=== PATIENT | female | born 1995 | race Hispanic/Latino ===

== ENCOUNTER 2019-10-13 19:24 | Day surgery (SDC) | payer OTHER ==
[2019-10-13 20:11] VITALS: BP 107/66; TEMP 98.7; BMI 50.5
[2019-10-13] MEDS ORDERED: hydrALAZINE 20 MG/ML VIAL SLOW IVP PRN (20:34)
--- NOTE | 2019-10-13 22:27 | ULT ---
EXAM: US OB [facility] PROVIDED CLINICAL HISTORY: Positive . Evaluate amniotic fluid index. Reduced movement, leaking fluid. COMPARISON: None FINDINGS: A single intrauterine gestation in cephalic presentation is identified. Cardiac Doppler demonstrates heart tones with a heart rate of 135 bpm. The placenta is located anteriorly without findings to suggest placenta previa. Amniotic fluid index measures 12.4 cm. The cervix is not well ev aluated due to shadowing from the head. anatomical structures were not evaluated. measurements were also not obtained. IMPRESSION: 1. Single intrauterine gestation is cephalic presentation with heart tones documented. 2. Amniotic fluid index measures 12.4 cm.
--- NOTE | 2019-10-13 23:38 | PRG ---
DATE OF SERVICE: 10/13/2019 PRIMARY OB: Dr. Nishant Reyna. CHIEF COMPLAINT: Decreased movement and vaginal spotting. HISTORY OF PRESENT ILLNESS: The patient is a 24-year-old G2, P0 female, with an intrauterine at 28 weeks and 6 days, presenting to Labor and Delivery for complaints of decreased movement for 2 days. She also reports that she has had little bit of cramping. The patient reports that she feels every now and again cramping in her upper portions of her uterus that remind her of menstrual cramps; however, the cramping that she is experiencing is present, but not painful. The patient reports that she typically feels her baby move with some raising and lowering in the pelvis and some taps, but has not felt that and has come here for further evaluation. The patient denies any recent illness, fever, fall, headache, chest pain, shortness of breath, nausea, vomiting, diarrhea, constipation, hip problems, knee problems, muscle weakness, any change in her discharge, urinary urgency, or frequency. The patient does report that she takes 25 mcg of levothyroxine, but has not taken it for the last couple of weeks due to cost. PAST MEDICAL HISTORY: Hypothyroidism diagnosed in this . PAST SURGICAL HISTORY: Cholecystectomy at age 15. ALLERGIES: CONTRAST MEDIA WITH IODINE. MEDICATIONS: 1. vitamins. 2. Levothyroxine. SOCIAL HISTORY: Denies drug, alcohol, or tobacco use. REVIEW OF SYSTEMS: Per HPI. PHYSICAL EXAMINATION: VITAL SIGNS: Blood pressure 107/66, heart rate of 108, respiratory rate of 18, temperature 98.7. GENERAL: She appears to be in no acute distress. She is alert, oriented, cooperative, and pleasant to interact with. HEAD: Normocephalic and atraumatic. LUNGS: Clear to auscultation bilaterally. HEART: Regular rate and rhythm. ABDOMEN: Gravid, soft, nontender. She has no fundal tenderness. No lower pelvic tenderness. : Deferred. heart tracing shows the fetus with a baseline in the 140s with moderate long-term variability, positive 15 x 15 accelerations. Tocometer is quiet. Bedside ultrasound shows NELIA of 12, and fetus in vertex presentation. ASSESSMENT AND PLAN: The patient is a 24-year-old female with intrauterine at 28 weeks and 6 days, who presented for decreased movement. Since arriving to the hospital, the patient has felt some movement while at bedside and during the ultrasound. The fetus has a reassuring tracing and has a normal NELIA. The patient has been given labor precautions and has an appointment to follow up with her primary OB next week. The patient is being discharged to home without any concerns for labor and has been given reassurance with status at this time. Job ID: [id number]
== END 2019-10-13 21:40 | disposition home or self-care (01) ==
LOC: L&D/OP 19:24
PROVIDERS: ATTEND Obstetrics & Gynecology
DX: O36.8130 Decreased fetal movements, third trimester, not applicable or unspecified (principal); O26.853 Spotting complicating pregnancy, third trimester; O99.283 Endocrine, nutritional and metabolic diseases complicating pregnancy, third trimester; E03.9 Hypothyroidism, unspecified; Z3A.28 28 weeks gestation of pregnancy; Z91.041 Radiographic dye allergy status
CPT/HCPCS: 76815; 99282

== ENCOUNTER 2019-12-22 14:27 | Inpatient (IN) | payer OTHER ==
[~2019-12-22 14:27] MED LIST: Bupivacaine 0.25% HCL 30 ML VIAL ONE; Bupivacaine PF 0.5% 30 ML VIAL ONE; Lidocaine 2% MPF 10 ML AMP (For Epidural Use) ONE; PROPOFOL 200 MG/20 ML VIAL ONE; Succinylcholine Chloride 20 MG/ML 10 ml SYRINGE FS ONE
[2019-12-22 15:17] VITALS: BMI 53.1
[2019-12-22] MEDS ORDERED: hydrALAZINE 20 MG/ML VIAL SLOW IVP PRN ×3 (15:24→15:37)
--- NOTE | 2019-12-22 15:32 | PDOC.LDHP ---
Labor and Delivery H&P Chief complaint: other (Sent by Dr Reyna from office for BP check, BP there was 140-150o/90-100s.) HPI: 24 yo HG2Po at 38 weeks 6 days with some cough upon lying down, with good FM, no VB. no LOF. No current HALL or visual changes. Review of Systems: cough only when lies down, no fevers, no sick contacts. COVID screen neg Current gestational age (weeks): 38 (6 days) Due date: 12/30/19 Dating criteria: last menstrual period Grav: 2 Para: 0 OB History Details: SAB 1 with D&C Current complications: none, other (hypothyroid on 25mcg synthrouid but out of meds for about 10 days) Past Medical History: Hypothyroid; Obesity Current medications: pre- vitamins Allergies/Adverse Reactions: Allergies Allergy/AdvReac Type Severity Reaction Status Date / Time Iodinated Contrast Media Allergy Severe Anaphylaxis Verified 12/22/19 15:06 Social history: none - Physical Exam Abnormal vital signs: BP 140/90s General: NAD Heart: RRR Lungs: CTAB Abdomen: gravid Extremeties: no edema FHT: category 1 [employer] contractions every: none - Assessment L&D Assessment: term patient in labor (PIH, NOS. ) - Plan Plan: admit to L&D, informed consent obtained (GBS negative. I am at bedise now and have discussed POC with the patient. CX pending after lab draw which is inuse. I discussed mag with the patinet.), magnesium for seizure prophylaxis, anesthesia consult for pain management
[2019-12-22] MEDS ORDERED: Bisacodyl 10 MG SUPP PR PRN (15:37)
[2019-12-22] MEDS ORDERED: Milk Of Magnesia 30 ML UDCUP PO PRN (15:37)
[2019-12-22] MEDS ORDERED: Lanolin Ointment 7 GM TUBE TOP PRN (15:37)
[2019-12-22] MEDS ORDERED: Calcium Gluc 4.6 MEQ/10 ML (100 MG/ML) SLOW IVP PRN (15:37)
[2019-12-22] MEDS ORDERED: Acetaminophen/Codeine 30-300mg Tablet PO PRN ×2 (15:37)
[2019-12-22] MEDS ORDERED: Butorphanol Tartrate 1 MG/ML VIAL SLOW IVP PRN (15:37)
[2019-12-22] MEDS ORDERED: Ondansetron PF 4 MG/2 ML Vial IVP PRN (15:37)
[2019-12-22] MEDS ORDERED: Promethazine HCl 25 MG/ML VIAL IM PRN (15:37)
[2019-12-22] MEDS ORDERED: Magnesium Sulfate 20 gm/500 ml 20 GM/500 ML BAG IVPB SCH (15:45)
[2019-12-22] MEDS ORDERED: Magnesium Sulfate 20 GM/WATER 500 ML BAG IVPB SCH (15:45)
[2019-12-22] MEDS ORDERED: NS / Oxytocin 40 units/1000ml 1,000 ML IV SCH (15:45)
[2019-12-22 15:49] LABS: #Eosinphils 0.1 thou/uL (0.0-0.7); #Lymphocytes 1.5 thou/uL (1.20-3.40); #Monocytes 0.3 thou/uL (0.11-0.59); #Neutrophils 4.6 thou/uL (1.40-6.50); %Basophils 0.2 % (0.0-1.0); %Lymphocytes 23.6 % (21.0-51.0); %Monocytes 3.9 % (0.0-10.0); %Neutrophils 71.4 % (42.0-75.0); Hemoglobin 13.8 g/dL (12.0-16.0); Mean Corpuscular HGB CONC 34.7 g/dL (32.0-36.0); Mean Corpuscular Hemoglobin 31.2 pg (27.0-31.0); Mean Corpuscular Volume 90.1 fL (78.0-98.0); Mean Platelet Volume 11.5 fL (7.4-10.4); Platelet Count 146 thou/uL (130-400); RBC Distribution Width 12.8 % (11.5-14.5); Red Blood Cell (RBC) Count 4.41 mill/uL (4.20-5.40); White Blood Cell (WBC) Count 6.5 thou/uL (4.8-10.8)
--- NOTE | 2019-12-22 16:07 | PRG ---
DATE OF SERVICE: 12/22/2019 ADDENDUM TO HISTORY AND PHYSICAL: TIME OF EVALUATION: Roughly 15:30 until 15:50. LOCATION: Triage bed B. In brief, I checked the patient's cervical exam after completing her history and physical. Cervix is 1 cm dilated, 25% effaced, -2 station. Bag of marsh intact, and I do palpate the sutures through the cervix. This exam is not markedly different from Dr. Reyna's by her report to me, when she checked her in the office earlier today. I have discussed with the patient her blood pressure concern, discussed PIH as -induced hypertension, and discussed induction of labor. The patient accepts. I also discussed with her magnesium sulfate. We will start the induction later on this evening around 8 p.m. after the patient's family member has arrived and has brought her her things as this is a non-emergent, but necessary induction. The patient voiced understanding. I did consent her that induction of labor may result in a , rapid labor, or failure to induce labor. The patient is aware. Job ID: [id number]
[2019-12-22 16:10] LABS: ALT (SGPT) 10 U/L (8-55); AST (SGOT) 19 U/L (5-34); Albumin 3.2 g/dL (3.5-5.0); Alkaline Phosphatase 271 U/L (40-110); Anion Gap 15 mmol/L (10-20); BUN (Urea Nitrogen) 7 mg/dL (7.0-18.7); Bilirubin, Total 0.3 mg/dL (0.2-1.2); Calc. Creatinine Clearance 305 mL/min (70-130); Calcium 9.2 mg/dL (7.8-10.44); Carbon Dioxide 17 mmol/L (22-29); Chloride 108 mmol/L (98-107); Estimated GFR-MDRD Greater than 90; Glucose 110 mg/dL (70-105); Potassium 3.8 mmol/L (3.5-5.1); Protein, Total 6.2 g/dL (6.0-8.3); Sodium 136 mmol/L (136-145)
[2019-12-22 16:28] LABS: Syphilis Antibody Nonreactive (Nonreactive); Syphilis Antibody Index 0.03 S/CO (<1.00 Non-Reactive)
[2019-12-22 16:30] LABS: HBSAg Index 0.14 S/CO (0-0.99); HIV (1/2) Antibody/Antigen Non-Reactive (NonReactive); HIV 1/2 INDEX 0.08 S/CO (<1.00); Hep B Surf Ag Non-Reactive S/CO (NonReactive); Hep C IgG Ab Non-Reactive (NonReactive); Hep C Index 0.12 S/CO (0-0.79)
--- NOTE | 2019-12-22 16:47 | PDOC.EVN ---
Event Note - Event Note Event Note: Just discussed care with Nidia, her RN. Patient with non-febrile cough. I will order COVID test and place in isolation to be conservative. Will also order full respiratory panel.
[2019-12-22] MEDS ORDERED: Ferrous Sulfate 325 MG TAB PO SCH (17:00)
[2019-12-22 19:02] LABS: Creatinine, Urine 84.31 mg/dL (47-110); Protein, Urine Random Quant Less than 10 mg/dL (1-14)
[2019-12-22] MEDS ORDERED: Docusate Calcium (SURFAK) 240 MG CAP PO SCH (21:00)
--- NOTE | 2019-12-22 21:07 | PDOC.EVN ---
Event Note - Event Note Event Note: Mag note: BPs nonsevere and no current sxs. OK to hold Mag until in active labor or until pitocin used to prevent prolonged mag exposure. D/W ANNI Barnett. We agree with plan.
[2019-12-22] MEDS: Misoprostol 100 MCG TAB VAG SCH (21:38)
[2019-12-22] MEDS ORDERED: Ibuprofen 800 MG TAB PO SCH (22:00)
[2019-12-22] MEDS: Lactated Ringer's 1,000 ML IV SCH (22:34)
[2019-12-23] MEDS: Misoprostol 100 MCG TAB VAG SCH (00:44)
[2019-12-23] MEDS ORDERED: Calcium Carbonate 500 MG ChewTAB PO PRN (00:56)
[2019-12-23] MEDS ORDERED: NS w/ Oxytocin 10 units 500 ML IVPB SCH (06:15)
[2019-12-23] MEDS: Lactated Ringer's 1,000 ML IV SCH ×2 (07:24→13:34)
--- NOTE | 2019-12-23 08:31 | PDOC.LDPN ---
Labor & Delivery Progress Note - Subjective Subjective: comfortable - Objective Vital signs reviewed and normal: yes General: resting Uterine fundus: non tender Dilation: 2 Effacement: 50% FHT: category 1 AROM: clear fluid IUPC placed: yes FSE placed: yes - Assessment (1) Obesity Code(s): E66.9 - OBESITY, UNSPECIFIED Current Visit: Yes Status: Acute (2) PIH ( induced hypertension) Code(s): O13.9 - GESTATIONAL HTN W/O SIGNIFICANT PROTEINURIA, UNSP TRIMESTER Current Visit: Yes Status: Acute Plan: continue plan of care, pitocin for augmentation
[2019-12-23] MEDS ORDERED: Prenatal Vitamin 1 TAB PO SCH (09:00)
[2019-12-23] MEDS ORDERED: Adacel (T-DAP) 0.5 ML SYRINGE IM ONE (09:00)
[2019-12-23] MEDS ORDERED: Measles/Mumps/Rubella 10 MCG/0.5 ML VIAL SC ONE (09:00)
[2019-12-23 11:52] LABS: SARS-CoV-2 MS2 Positive; SARS-CoV-2 N Gene Negative; SARS-CoV-2 S Gene Negative; SARS-CoV-2 orf1ab Negative
--- NOTE | 2019-12-23 12:54 | PDOC.LDPN ---
Labor & Delivery Progress Note - Subjective Subjective: comfortable - Objective Vital signs reviewed and normal: yes General: breathing through contractions Dilation: 4 Effacement: 50% Station: -2 FHT: category 1 - Assessment (1) Obesity Code(s): E66.9 - OBESITY, UNSPECIFIED Current Visit: Yes Status: Acute (2) PIH ( induced hypertension) Code(s): O13.9 - GESTATIONAL HTN W/O SIGNIFICANT PROTEINURIA, UNSP TRIMESTER Current Visit: Yes Status: Acute Plan: continue plan of care -: Pt undergoing IOL for PIH, mild range BP in labor, no severe features. IOL w pitocin now 4cm at 11 am, unchanged at 1300 check, MVU's adequate. Continue plan of care.
[2019-12-23] MEDS ORDERED: Fentanyl 4 mcg/Bup 0.1% Cadd 100 ML ONE ×2 (13:05→18:34)
[2019-12-23] MEDS ORDERED: Succinylcholine Chloride 20 MG/ML 10 ml SYRINGE FS ONE (13:13)
[2019-12-23] MEDS ORDERED: PROPOFOL 200 MG/20 ML VIAL ONE (13:13)
[2019-12-23] MEDS ORDERED: Naloxone HCl 0.4 mg/ml Vial IVP PRN ×4 (13:42→19:30)
[2019-12-23] MEDS ORDERED: Lactated Ringer's 500 ML IV PRN (13:42)
[2019-12-23] MEDS ORDERED: EPHEDRINE 25 MG/5 ML SYRINGE SLOW IVP PRN (13:42)
[2019-12-23] MEDS ORDERED: Acetaminophen 325 MG TAB PO PRN ×2 (13:42→22:26)
[2019-12-23] MEDS ORDERED: Ondansetron PF 4 MG/2 ML Vial IVP PRN ×4 (13:42→22:26)
[2019-12-23] MEDS ORDERED: Promethazine HCl 25 MG/ML VIAL IM PRN ×4 (13:42→22:26)
[2019-12-23] MEDS ORDERED: diphenhydrAMINE 50 MG/ML VIAL IVP PRN ×3 (13:42→20:44)
[2019-12-23] MEDS ORDERED: Fentanyl 4 mcg/Bupivacaine 0.1% Cassette 100 ML EPIDURAL SCH (13:45)
[2019-12-23] MEDS ORDERED: Communication Order-Pharmacy FS SCH ×3 (13:45→20:45)
--- NOTE | 2019-12-23 16:42 | PDOC.LDPN ---
Labor & Delivery Progress Note - Subjective Subjective: comfortable - Objective Vital signs reviewed and normal: yes General: resting Dilation: 4 Effacement: 75% Station: -2 FHT: category 1 [place] contractions every: 2 Resuscitative measures: maternal position change - Assessment (1) Obesity Code(s): E66.9 - OBESITY, UNSPECIFIED Current Visit: Yes Status: Acute (2) PIH ( induced hypertension) Code(s): O13.9 - GESTATIONAL HTN W/O SIGNIFICANT PROTEINURIA, UNSP TRIMESTER Current Visit: Yes Status: Acute Plan: continue plan of care -: A/P: No cervical change since 11am with adequate MVUs noted since IUPC placed at 0800. Discussed reassuring FHT and plan to continue IOL at this time, if cervix with no adequate change in 2 hours will turn pitocin off and plan for CS for arrest of dilation @ 4cm.
[2019-12-23] MEDS ORDERED: CEFAZOLIN 3 GM in Sodium Chloride 0.9% 100 ML IVPB SCH (19:15)
[2019-12-23] MEDS ORDERED: Azithromycin 500 MG VIAL ONE (19:24)
[2019-12-23] MEDS ORDERED: Oxytocin 10 UNITS/ML VIAL ONE (19:25)
[2019-12-23] MEDS ORDERED: Lidocaine 2% MPF 10 ML AMP (For Epidural Use) ONE (19:26)
[2019-12-23] MEDS ORDERED: L&D-Morphine 4 MG/ML VIAL SLOW IVP PRN (19:30)
[2019-12-23] MEDS ORDERED: Meperidine HCl/PF 25 MG/ML VIAL SLOW IVP PRN (19:30)
[2019-12-23] MEDS ORDERED: HYDROmorphone 2 MG/ML VIAL SLOW IVP PRN (19:30)
[2019-12-23] MEDS ORDERED: Ondansetron HCl/PF 4 MG/2 ML Vial IVP PRN (19:30)
[2019-12-23] MEDS ORDERED: Ketorolac Tromethamine 30 MG/ML VIAL IVP SCH (19:30)
[2019-12-23] MEDS ORDERED: Promethazine HCl 25 MG SUPP PR PRN (19:30)
[2019-12-23] MEDS ORDERED: Naloxone HCl 0.4 mg/ml Vial IV PRN ×2 (19:30→20:44)
[2019-12-23] MEDS ORDERED: Fentanyl 250 MCG/5 ML VIAL ONE (20:07)
--- NOTE | 2019-12-23 20:33 | PDOC.OPDEL ---
OB Operative/Delivery Note Delivery Dr/Surgeon: janki Assist: vijaya Pre-Delivery Diagnosis: arrest of dilation (4cm) Procedure/Post Delivery Dx: primary low transverse CS Weeks gestation: 39 Anesthesia: other (GETA after epidural) - Additional Findings/Plan Placenta delivered: manual removal findings: low transverse hysterotomy without extension, normal uterus, normal tubes, normal ovaries Estimated blood loss: 600ml Post delivery plan: routine recovery
[2019-12-23] MEDS ORDERED: diphenhydrAMINE 25 MG CAP PO PRN ×2 (20:44→22:26)
[2019-12-23] MEDS ORDERED: fentaNYL Citrate/PF 2,000 MCG in Sodium Chloride 0.9% 60 ML IV PRN (20:44)
[2019-12-23] MEDS ORDERED: diphenhydrAMINE 50 MG/ML VIAL IM PRN (20:44)
[2019-12-23] MEDS ORDERED: Fentanyl 100 MCG/2 ML VIAL ONE (20:44)
[2019-12-23] MEDS ORDERED: Zolpidem Tartrate 5 MG TAB PO PRN (20:44)
[2019-12-23] MEDS ORDERED: Fentanyl 100 MCG/2 ML VIAL SLOW IVP SCH (21:30)
[2019-12-23] MEDS ORDERED: NS / Oxytocin 40 units/1000ml 1,000 ML IV SCH (22:26)
[2019-12-23] MEDS ORDERED: HYDROcodone/Acetaminophen 5/325 mg Tablet PO PRN ×3 (22:26→22:43)
[2019-12-23] MEDS ORDERED: Lanolin Ointment 7 GM TUBE TOP PRN (22:26)
[2019-12-23] MEDS ORDERED: Bisacodyl 10 MG SUPP PR PRN (22:26)
[2019-12-23] MEDS ORDERED: hydrALAZINE 20 MG/ML VIAL SLOW IVP PRN (22:26)
[2019-12-23] MEDS ORDERED: Docusate Calcium (SURFAK) 240 MG CAP PO SCH (23:00)
[2019-12-23] MEDS ORDERED: Ibuprofen 800 MG TAB PO SCH (23:00)
[2019-12-24] MEDS: Misoprostol 100 MCG TAB VAG SCH ×2 (01:20→01:21)
[2019-12-24] MEDS: Lactated Ringer's 1,000 ML IV SCH ×2 (01:25→08:20)
[2019-12-24] MEDS: Ketorolac Tromethamine 30 MG/ML VIAL IVP PRN ×3 (02:09→14:33)
--- NOTE | 2019-12-24 02:12 | OP ---
DATE OF PROCEDURE: 12/23/2019 PREOPERATIVE DIAGNOSES: 1. A 24-year-old G1 at 39 weeks and zero days. 2. Induction for gestational hypertension. 3. Arrest of dilation. 4. Obesity. POSTOPERATIVE DIAGNOSES: 1. A 24-year-old G1 at 39 weeks and zero days. 2. Induction for gestational hypertension. 3. Arrest of dilation. 4. Obesity. PROCEDURES PERFORMED: Primary low-transverse section. CHORUS MASTER: Dameon Rose MD ANESTHESIA: GETA by Dr. Wiggins with epidural that was previously placed. ESTIMATED BLOOD LOSS: 600 mL. COMPLICATIONS: None. OPERATIVE FINDINGS: 1. Vigorous female infant. Apgars pending at the time of dictation. Weight 8 pounds 1 ounce to [facility]. 2. Low-transverse hysterotomy without extension. 3. Central obesity. 4. Normal-appearing uterus, tubes, and ovaries bilaterally. 5. Placenta delivered with 3-vessel cord. 6. Fundus firm after delivery of the placenta and closure of the hysterotomy. DESCRIPTION OF PROCEDURE: The patient was taken back to the OR with IV fluids running. When she was in the OR, she was placed in dorsal supine position with a left lateral tilt. Carrington catheter and epidural catheters had previously been placed. The patient was prepped and draped in normal fashion for section. Surgeons were gowned and gloved. Anesthesia was tested and the patient experienced an intolerable amount of pain and general anesthesia was then placed after the patient was counseled by the Anesthesia Team. Prior to the patient's request for anesthesia, a Pfannenstiel skin incision had been made, which been carried down through subcutaneous tissue with a scalpel. After the patient was asleep, the procedure proceeded with dissection down toward the rectus fascia. Once the rectus fascia was reached, it was incised in the midline and extended superolaterally using curved Mark scissors. Brooks clamps placed at the superior border of the fascia, which was sharply and bluntly dissected off the rectus abdominis muscle. In similar fashion, Brooks clamps were placed at the inferior border of the fascia, which was dissected down towards the pubic symphysis. The rectus muscles were bluntly in the midline. The peritoneum was bluntly entered and stretched laterally. An Gerardo O retractor was placed in the peritoneal cavity for retraction, visualization, and protection of the wound. A scalpel was used to create a hysterotomy. The hysterotomy was bluntly entered and stretched using the Conner maneuver. The was delivered through the hysterotomy. The nose and mouth were suctioned. The cord was doubly clamped and cut. The was handed off to special care nurse in attendance. Cord blood was collected. The placenta was delivered. Uterus was exteriorized, massaged firm, and cleared off clot and debris. The uterus was returned to the abdominal cavity, massaged to firm and the hysterotomy was closed with Monocryl suture in a running locked fashion. An additional 2nd layer of closure was placed for hemostasis in the portion of the hysterotomy. After the hysterotomy was completely closed and hemostasis was noted, the hysterotomy and paracolic gutters were copiously irrigated and suctioned dry. The hysterotomy was again inspected and no bleeding was noted. The initial count was correct and the Gerardo O retractor was removed from the abdominal cavity. Rectus muscle and fascia were inspected and no areas of bleeding were noted. The rectus fascia was closed with PDS suture from corner to corner and tied separately in the midline. The subcutaneous tissue was irrigated and dried. Any small areas of bleeding were controlled with Bovie cauterization. It was closed in 2 layers with plain gut suture, the zoroastrian of anatomy and closure of the space. 4-0 Monocryl was used to close the subcuticular layer and a DAVEY sterile dressing was applied for protection of the wound. The final count was correct. There were no complications. The patient was awoke from anesthesia and moved to the recovery room in good condition. Job ID: [id number]
[2019-12-24 05:59] LABS: Hemoglobin 11.8 g/dL (12.0-16.0); Mean Corpuscular HGB CONC 34.5 g/dL (32.0-36.0); Mean Corpuscular Hemoglobin 31.5 pg (27.0-31.0); Mean Corpuscular Volume 91.2 fL (78.0-98.0); Mean Platelet Volume 10.9 fL (7.4-10.4); Platelet Count 136 thou/uL (130-400); RBC Distribution Width 12.7 % (11.5-14.5); Red Blood Cell (RBC) Count 3.74 mill/uL (4.20-5.40); White Blood Cell (WBC) Count 8.1 thou/uL (4.8-10.8)
[2019-12-24] MEDS: Prenatal Vitamin 1 TAB PO SCH (08:20)
[2019-12-24] MEDS: Docusate Calcium (SURFAK) 240 MG CAP PO SCH ×2 (08:21→22:06)
[2019-12-24] MEDS: Ferrous Sulfate 325 MG TAB PO SCH ×2 (08:21→16:54)
[2019-12-24] MEDS: Simethicone Chewable 80 MG TAB PO PRN ×2 (08:24→14:34)
--- NOTE | 2019-12-24 09:05 | PDOC.PP ---
Post Progress Note Post Day #: 1 Subjective: pain with movement-okay at rest, minimal lochia, breast feeding, no NV PO intake tolerated: yes Flatus: yes Ambulation: yes Vital Signs (12 hours) Temp Pulse Resp BP Pulse Ox 12/24/19 08:05 98.6 F 105 H 20 121/77 97 12/24/19 06:23 98.6 F 100 14 116/69 98 12/24/19 00:58 99.0 F 103 H 16 135/88 98 12/23/19 23:49 98.7 F 95 16 138/89 99 Weight Weight 319 lb - Physical Examination General: NAD Respiratory: non-labored breathing Abdominal: no distention Extremities: negative homans (B) (SCDS on) Skin: CS incision dry & intact, no rash Neurological: no gross focal deficits Psychiatric: A&Ox3, normal affect Result Diagrams: 12/24/19 05:39 12/22/19 15:31 Additional Labs: Post Labs Blood Type O POSITIVE 12/22/19 15:40 Hep Bs Antigen Non-Reactive S/CO (NonReactive) 12/22/19 15:40 (1) Obesity Code(s): E66.9 - OBESITY, UNSPECIFIED Status: Acute (2) PIH ( induced hypertension) Code(s): O13.9 - GESTATIONAL HTN W/O SIGNIFICANT PROTEINURIA, UNSP TRIMESTER Status: Acute - Assessment/Plan POD1 sp 1CS for failure to progress. Doing well, goals for today pain control with oral meds reviewed. Goals for ambulation to decrease risk of VTE reviewed , if not able to ambulate well this AM will start prophylactic lovenox, approx 12hrs post CS now. BP WNL, no si/sx worsening PIH.
[2019-12-24] MEDS ORDERED: HYDROcodone/Acetaminophen 5/325 mg Tablet PO PRN ×3 (09:11→09:12)
[2019-12-24] MEDS: HYDROcodone/Acetaminophen 5/325 mg Tablet PO PRN ×2 (14:33→18:36)
[2019-12-24] MEDS: Enoxaparin Sodium 40 MG/0.4 ML SYRINGE SC SCH (18:32)
[2019-12-24] MEDS ORDERED: Ibuprofen 800 MG TAB PO SCH (22:00)
[2019-12-24] MEDS: Ibuprofen 800 MG TAB PO SCH (22:08)
[2019-12-25] MEDS: Enoxaparin Sodium 40 MG/0.4 ML SYRINGE SC SCH ×2 (06:17→18:37)
[2019-12-25] MEDS: Ibuprofen 800 MG TAB PO SCH ×3 (06:17→21:37)
--- NOTE | 2019-12-25 06:39 | PDOC.PP ---
Post Progress Note Post Day #: 2 Subjective: Still slow to move but moving more yesterday. Having a little more pain on one side this morning. PO intake tolerated: yes Flatus: yes Ambulation: yes Vital Signs (12 hours) Temp Pulse Resp BP Pulse Ox 12/24/19 23:50 98.5 F 105 H 18 122/68 12/24/19 20:40 98.6 F 100 20 117/56 L 98 Weight Weight 319 lb - Physical Examination General: NAD Respiratory: non-labored breathing Abdominal: lochia (normal), no distention, appropriately TTP Fundus firm & at: below umbilucus Skin: CS incision dry & intact (vacuum in place) Neurological: no gross focal deficits Psychiatric: A&Ox3, normal affect Result Diagrams: 12/24/19 05:39 12/22/19 15:31 Additional Labs: Post Labs Blood Type O POSITIVE 12/22/19 15:40 Hep Bs Antigen Non-Reactive S/CO (NonReactive) 12/22/19 15:40 - Assessment/Plan Continue routine postop management. Anticipate d/c tomorrow. Meds already called in by Dr. Reyna.
[2019-12-25] MEDS: Ferrous Sulfate 325 MG TAB PO SCH ×2 (08:24→08:25)
[2019-12-25] MEDS: Docusate Calcium (SURFAK) 240 MG CAP PO SCH ×2 (08:29→21:37)
[2019-12-25] MEDS: Prenatal Vitamin 1 TAB PO SCH (08:29)
[2019-12-26] MEDS: HYDROcodone/Acetaminophen 5/325 mg Tablet PO PRN (01:17)
[2019-12-26] MEDS: Enoxaparin Sodium 40 MG/0.4 ML SYRINGE SC SCH (05:25)
[2019-12-26] MEDS: Ibuprofen 800 MG TAB PO SCH (05:26)
--- NOTE | 2019-12-26 06:07 | PDOC.PP ---
Post Progress Note Post Day #: 3 Subjective: Doing well and would like to be released home today PO intake tolerated: yes Flatus: yes Ambulation: yes Vital Signs (12 hours) Temp Pulse Resp BP Pulse Ox 12/25/19 20:27 99.2 F 105 H 18 122/72 99 Weight Weight 319 lb Vitals reviewed last 24 hrs; BPs wnl - Physical Examination General: NAD Cardiovascular: no m/r/g Abdominal: + bowel sounds, lochia, no distention, appropriately TTP Extremities: negative homans (B) Skin: CS incision dry & intact (Dressing in place with wound vac in use), no rash Neurological: no gross focal deficits Psychiatric: A&Ox3, normal affect Result Diagrams: 12/24/19 05:39 12/22/19 15:31 Additional Labs: Post Labs Blood Type O POSITIVE 12/22/19 15:40 Hep Bs Antigen Non-Reactive S/CO (NonReactive) 12/22/19 15:40 (1) delivery delivered Code(s): O82 - ENCOUNTER FOR DELIVERY WITHOUT INDICATION Status: Acute (2) Obesity Code(s): E66.9 - OBESITY, UNSPECIFIED Status: Acute (3) PIH ( induced hypertension) Code(s): O13.9 - GESTATIONAL HTN W/O SIGNIFICANT PROTEINURIA, UNSP TRIMESTER Status: Acute - Assessment/Plan POD 3 OK for DC home with wound vac. Due to BMI I reviewed with her recommendations from professional societies to continue Lovenox for approx 10 days postop to prevent DVT events. I also encouraged ambulation. Home today and follow up friday this week
[2019-12-26] MEDS: Ferrous Sulfate 325 MG TAB PO SCH (07:42)
[2019-12-26 08:20] VITALS: BP 110/58; TEMP 97.9
[2019-12-26] MEDS: Docusate Calcium (SURFAK) 240 MG CAP PO SCH (08:56)
[2019-12-26] MEDS: Prenatal Vitamin 1 TAB PO SCH (08:56)
== END 2019-12-26 13:30 | disposition home or self-care (01) | DRG 788 ==
LOC: L&D/OP 14:27 → L&D 19:19 → 3SW 12-23 23:39
PROVIDERS: ADMIT Obstetrics & Gynecology; ATTEND Obstetrics & Gynecology
PROC: 3E033VJ Introduction of Other Hormone into Peripheral Vein, Percutaneous Approach (ICD-10-PCS; 2019-12-22)
PROC: 10D00Z1 Extraction of Products of Conception, Low, Open Approach (ICD-10-PCS; principal; 2019-12-23)
DX: O13.4 Gestational [pregnancy-induced] hypertension without significant proteinuria, complicating childbirth (principal); O99.214 Obesity complicating childbirth; Z37.0 Single live birth; Z3A.38 38 weeks gestation of pregnancy; E66.9 Obesity, unspecified; O99.284 Endocrine, nutritional and metabolic diseases complicating childbirth; E03.9 Hypothyroidism, unspecified; O62.1 Secondary uterine inertia
CPT/HCPCS: 36415; 51702; 80053; 81003; 82570; 84156; 85025; 85027; 86780; 86803; 86900; 86901; 87340; 87389; 87633; 87635; 99285; J0456; J0595; J1650; J1885; J2001; J2590; J2704; J3010; J3475; J3490; S0020; U0003